=== PATIENT | female | born 1995 | race Caucasian/White ===

== ENCOUNTER → 2022-08-03 14:23 | Outpatient (BNVA) | payer MEDICAID, SELFPAY | PROVIDERS: Visit Provider Nurse Practitioner Family | DX: S62.646A Nondisplaced fracture of proximal phalanx of right little finger, initial encounter for closed fracture (principal); W23.0XXA Caught, crushed, jammed, or pinched between moving objects, initial encounter; M79.641 Pain in right hand | CPT/HCPCS: 73130 ==

== ENCOUNTER 2022-08-07 01:00 | Outpatient (CLI) | payer MEDICAID, SELFPAY | END 2022-08-07 23:00 | disposition home or self-care (01) | LOC: SPT 09-01 18:32 | PROVIDERS: Visit Provider Orthopaedic Surgery | DX: Z46.89 Encounter for fitting and adjustment of other specified devices (principal); S62.606D Fracture of unspecified phalanx of right little finger, subsequent encounter for fracture with routine healing; X58.XXXD Exposure to other specified factors, subsequent encounter | CPT/HCPCS: 26720; 99203; L3982 ==

== ENCOUNTER → 2022-08-18 10:45 | Outpatient (BNVA) | payer MEDICAID, SELFPAY | PROVIDERS: Visit Provider Nurse Practitioner Family | DX: S62.616A Displaced fracture of proximal phalanx of right little finger, initial encounter for closed fracture (principal); Y93.72 Activity, wrestling | CPT/HCPCS: 73130; 99214 ==